=== PATIENT | female | born 1995 | race Asian ===

== ENCOUNTER 2020-11-02 02:57 | Emergency (ER) | payer SELFPAY ==
[~2020-11-02] VITALS: Ht 149.9 cm; Wt 50.0 kg
[2020-11-02 05:32] VITALS: BP 145/85; PULSE 123; TEMP 98.7
== END 2020-11-02 05:30 | disposition home or self-care (01) ==
LOC: COL.ER 02:57
DX: F12.129 Cannabis abuse with intoxication, unspecified (principal)
CPT/HCPCS: J7030

== ENCOUNTER 2020-11-02 17:02 | Emergency (ER) | payer SELFPAY ==
[~2020-11-02] VITALS: Ht 149.9 cm; Wt 59.1 kg
[2020-11-02 18:11] LABS: BASO # 0.1 (0.0-0.2); BASO % 0.8 % (0.0-2.0); EOS % 0.3 % (0-4.0); GRAN # 6.7 (1.4-6.5); GRAN % 74.5 % (42.2-75.2); HEMATOCRIT 41.2 % (37.0-47.0); LYMPH # 1.5 (1.2-3.4); LYMPH % 16.6 % (20.0-51.0); MEAN CELL VOLUME 84 fl (80.0-100.0); MEAN CORPUSCULAR HEMOGLOBIN 29 pg (27.0-31.0); MEAN CORPUSCULAR HGB CONC 34 g/dl (33.0-37.0); MEAN PLATELET VOLUME 8.8 fl (7.4-10.4); MONO # 0.7 (0.1-0.6); MONO % 7.4 % (1.7-9.3); PLATELET COUNT 442 K/mm3 (130-400); RED BLOOD COUNT 4.92 M/mm3 (4.10-5.30); REDCELL DISTRIBUTION WIDTH-CV 13.6 % (11.5-14.5)
[2020-11-02 18:23] LABS: ACETAMINOPHEN < 10 ug/mL (10-30); ALANINE AMINOTRANSFERASE 20 U/L (4-34); ALCOHOL(ethanol),MEDICAL < 10 mg/dL; ALKALINE PHOSPHATASE 76 U/L (50-136); ANION GAP 11 mmol/L (7-16); AST,SGOT 27 U/L (15-37); BILIRUBIN,TOTAL 1.3 mg/dL (0.0-1.0); BLOOD UREA NITROGEN 2 mg/dL (7-17); CALCIUM 9.8 mg/dL (8.4-10.2); CARBON DIOXIDE 23 mmol/L (22-30); CHLORIDE 108 mmol/L (98-107); CREATININE, serum 0.76 (0.52-1.25); GLUCOSE 112 mg/dL (74-106); POTASSIUM 3.1 mmol/L (3.4-5.0); SALICYLATE < 1.0 mg/dL; SODIUM 141 mmol/L (137-145); TOTAL PROTEIN 8.9 gm/dL (6.4-8.2)
[2020-11-02 19:00] LABS: TSH w REFLEX 1.644 uIU/mL (0.350-4.940)
[2020-11-02 21:04] LABS: TRICYCLIC ANTIDEPRESS URINE NEGATIVE
[2020-11-03 06:56] VITALS: BP 129/80; PULSE 85; TEMP 98.4
== END 2020-11-03 08:00 ==
LOC: COL.ER 17:02
PROVIDERS: Physician Assistant
DX: F12.259 Cannabis dependence with psychotic disorder, unspecified (principal); F19.10 Other psychoactive substance abuse, uncomplicated; F17.210 Nicotine dependence, cigarettes, uncomplicated; Z20.822 Contact with and (suspected) exposure to COVID-19